=== PATIENT | female | born 1945 | race Two or more races ===

== ENCOUNTER → 2016-11-13 | Outpatient (CLI) | payer MEDICARE, MEDICAID ==
[~2016-11-13] MED LIST: ADV25050 INHALATION; AMOX1TAB10 PO; APIX2.5T PO; ATEN100T PO; BACTDS PO; ESOM40CA PO; FENO135C4 PO; IPRA4AER INHALATION; LEVO750T8 PO; LISI-313 PO; LOSA25TA5 PO; METO10TA92 PO; MTF1000T PO; NICO-524 TRANSDERM; PIOG45TA15 PO; PRAV40TA76 PO; PRED20 PO
--- NOTE | 2016-11-13 15:49 | RADRPT ---
PROCEDURE: Left knee radiographs. CLINICAL INDICATION: Left knee pain. TECHNIQUE: Three views. Weight bearing. Frontal, lateral, and patellar view. COMPARISON: No prior studies are available for comparison. FINDINGS: There is no fracture or dislocation. Vascular calcifications are present consistent with atherosclerosis. There are degenerative changes with osteophytes arising from all 3 joint compartment margins. There is medial joint compartment narrowing, subarticular sclerosis, and deformity. There is no lytic or blastic lesion. There is no radiopaque foreign body. IMPRESSION: 1. Severe degenerative changes of the left knee. 2. Atherosclerosis. RPTAT: QQ .Jose Daniel Hodgson MD, MD Date Time Electronically viewed and signed by .Jose Daniel Hodgson MD, MD on 11/13/2016 15:49 .R/
--- NOTE | 2016-11-13 22:34 | HKNOTE ---
DATE OF SERVICE: 11/13/2016 MAIN COMPLAINT: Pain in the left knee. HISTORY OF MAIN COMPLAINT: Patient is a 71-year-old female, who complains of pain in her left knee. The patient was referred by Dr. Al Vega. Patient previously had a left total knee replacement at the [facility]. She now has a gr eat deal of pain in her left knee. The pain in her left knee has been present for about 3 years and has become progressively more severe. She has had multiple injections of cortisone over the last 2 years. At first they helped a great deal, but the last couple of injections have not helped at all . PRESENT COMPLAINTS: The pain in the left knee is localized to the medial and posterior aspect of th e knee and is aggravated by walking, weightbearing, and stair climbing. She gets rest pain and nigh t pain. He takes Wing for the pain. She does not have any back problems. No numbness or tingling in her legs. Using a cane, she can walk about 50 feet at a time without stopping. She gets pain w ith every step. The knee does not feel unstable. Occasionally it swells. She does limp all the ti me. She does not have a . She cannot clip her toenails or tie her shoelaces. PAST ORTHOPEDIC HISTORY: PREVIOUS ORTHOPEDIC OPERATIONS: Right total knee replacement in 2013. PRIOR CORTISONE INTAKE: None. ALCOHOL INTAKE: None. OTHER JOINT PROBLEMS: None. BLOOD TESTS FOR ARTHRITIS: "Positive." WORK STATUS: Not applicable. PAST MEDICAL HISTORY: 1. Diabetes, type 2. 2. Hypertension. 3. Hypercholesterolemia. PAST SURGICAL HISTORY: Right knee replacement in 2013. ALLERGIES: NONE. MEDICATIONS: 1. Metoclopramide. 2. Pravastatin. 3. Metformin. 4. Atenolol. 5. Pioglitazone. 6. Losartan. 7. Lisinopril. 8. Wing. 9. Fenofibrate. FAMILY HISTORY: Not provided. SYSTEMS REVIEW: Prone to dizzy spells, hypertension, difficulty with breathing on occasion. Patien t's fainting spells on hot summer days. HABITS: The patient smokes 3 cigarettes a day. Alcohol intake: None. PHYSICAL EXAMINATION: GENERAL: The patient is a rather fragile looking 71-year-old female. She comes in with her Karen han, who translates for her mother, who does not speak Luxembourger. MUSCULOSKELETAL: Patient walks with a cane. She has a slow antalgic gait. Hip examination. Her l eft hip has full range of motion without pain. Right hip has a full range of motion without pain. No tenderness anywhere around either hip. Left knee examination modified as follows: Extension to 25 degrees. Flexion is to 105 degrees. Ma rked pain on reaching the limits of motion. IMAGING OF LEFT KNEE: Image of the left knee (3 views) obtained at [facility] today, shows [id number] contact with severe degenerative osteoarthritis of the medial compartmen t and patellofemoral joint. There is marked subchondral sclerosis and osteophyte formation. DIAGNOSES 1. Severe symptomatic degenerative osteoarthritis of the left knee. 2. Status post right total knee replacement. 3. Diabetes mellitus, type 2. 4. Hypertension. 5. Hypercholesterolemia. MANAGEMENT: The patient is advised that she will need to have a left knee replacement sooner or lat er. The patient's daughter indicates that they came into see me precisely because they wish to have a knee replacement operation for her mother. The operation of total knee replacement was discussed with the patient and her daughter (daughter in [place]) in a fair amount of detail for knee arthritis. The patient's daughter was referred to my website, [employer]. FINAL DIAGNOSES: 1. Severe symptomatic degenerative osteoarthritis of the left knee. 2. Status post right total knee replacement. 3. Diabetes mellitus, type 2. 4. Hypertension. 5. Hypercholesterolemia. Patient will call patient will call to schedule her left knee replacement at any time. [facility] She was given a prescription for Wing 10/325 to tide her over on her pain meanwhile. Dictated By: SUSHILA DAS/AKILA Conf#: [id number] DID#: [id number]
== END | disposition home or self-care (01) ==
LOC: HKI 15:16
DX: M25.562 Pain in left knee (principal); E11.9 Type 2 diabetes mellitus without complications; I10 Essential (primary) hypertension; E78.00 Pure hypercholesterolemia, unspecified; Z96.651 Presence of right artificial knee joint
CPT/HCPCS: 73562; G0463

== ENCOUNTER → 2016-11-20 | Outpatient (CLI) | payer MEDICARE, MEDICAID ==
--- NOTE | 2016-11-21 03:20 | HKNOTE ---
DATE OF SERVICE: 11/20/2016 Patient comes in for preoperative evaluation. She is scheduled to have a left total knee replacemen t on 11/21/2016. She has been cleared for surgery by Dr. Saleem Mckeon. She comes in with her grand daughter, who translates for her. Numerous questions were asked and answered. She has not given an y blood for autotransfusion. She understands the risks associated with using hospital blood. She i s agreeable to using hospital blood if needed. The patient's daughter has read the booklet I gave h er on knee replacement and knee replacement surgery. Dictated By: SUSHILA DAS/NTS Conf#: [id number] DID#: [id number]
== END | disposition home or self-care (01) ==
LOC: HKI 15:02
DX: Z01.818 Encounter for other preprocedural examination (principal)
CPT/HCPCS: G0463

== ENCOUNTER 2016-11-21 06:03 | Inpatient (IN) | payer MEDICARE, MEDICAID ==
--- NOTE | 2016-11-19 17:59 | HP ---
DATE OF ADMISSION: 11/21/2016 This is a patient of Dr. De Leon. Surgery date 11/21/2016. Dear Dr. De Leon: Thank you for asking me to see Mrs. Gonzales. She is a 71-year-old Grenadian speaking woman who has had years of difficulty with her right knee and now to the point that she can barely walk a half a bloc k and requires a cane for stability and is generally uncomfortable most of the time. She is to unde rgo a left total knee replacement. SOCIAL HISTORY: The patient is a cigarette smoker, half a pack per day, probably more. CURRENT MEDICATIONS: She is on multiple medications includin. Actos 45 mg daily. 2. Fenofibrate 145 mg daily. 3. Lisinopril 5 mg daily. 4. Atenolol 100 mg daily. 5. Metformin 2000 mg daily. 6. Losartan 50 mg daily. 7. Pravachol 40 mg daily. 8. Eliquis 5 mg daily. ALLERGIES: SHE HAS NO KNOWN ALLERGIES. PAST MEDICAL HISTORY: Positive for hyperlipidemia, diabetes. She checks herself twice a day and ev idently blood sugars are generally okay. She has a regular physician in the neighborhood. She has hypertension. She has a history of paroxysmal atrial fibrillation which is why she is on Eliquis. DISCUSSION: I just spoke with ____who feels that there are no issues about her having surgery a nd that she can safely stopped the Eliquis preoperatively. PAST SURGICAL HISTORY: Appendix and right knee replacement. REVIEW OF SYSTEMS: The patient speaks mostly Grenadian. She was interviewed with her granddaughter. HEENT: She has no headaches, no dizziness. There is some soreness over the left eye. No change in her vision. Not clear whether or not she has diabetic changes in her retina. Hearing is good. CARDIOPULMONARY: She denies any shortness of breath, cough, or difficulty with chest discomfort. S he has a history of hypertension without angina or coronary disease. GI, both okay. The joints are really not bothered by much except for her left knee. She still has residual difficulty with h er right knee. There is some tingling in her feet. FAMILY HISTORY: The patient was born in [place]. She is . subsequently . She has a healthy siblings and 3 grown children. There is no use of alcohol. PHYSICAL EXAMINATION: VITAL SIGNS: Blood pressure is 122/56, pulse is 60. She is afebrile, 5 foot and 0 inches tall, 19 6 pounds with a cane to ambulate. HEENT: No abnormalities seen other than dentures. NECK: Supple. No carotid bruits are appreciated. LUNGS: Clear to percussion and auscultation. HEART: Tones are regular, no murmurs. ABDOMEN: Soft, without palpable mass, organ or tenderness. EXTREMITIES: No clubbing, cyanosis, edema, although somewhat reduced peripheral pulses. There is a TKR scar on the right. The left knee is quite sore with any range of motion. NEUROLOGIC: Appears to be intact. INITIAL IMPRESSION: 1. Preoperative status for osteoarthritis of the left knee. 2. Hypertension. 3. Diabetes mellitus. 4. Hyperlipidemia. 5. Paroxysmal atrial fibrillation. DISCUSSION: At this point, the patient's medical status is okay to proceed with surgery. Her resti ng pulse oximetry is 98% on room air. The patient states that she takes oxygen at night. I am not clear why that is and I do not think that will be necessary depending on findings postoperatively. She is going to stop her metformin and her Eliquis today in advance of surgery. Thank you for letting us see her at this time. We will be glad to follow her along with you postope ratively. Dictated By: DANIELA GARCIA MD, SR/AKILA Conf#: [id number] DID#: [id number]
[~2016-11-21] VITALS: Ht 157.5 cm; Wt 81.6 kg
[2016-11-21] VITALS (27 sets, daily range): BP systolic 83–143; BP diastolic 38–68; PULSE 58–94; RESP 17–22; Ht 157.5 cm; Wt 81.6 kg
[2016-11-21] MEDS ORDERED: SOD CHLORIDE 0.9% IVPB ONE (06:30)
[2016-11-21] MEDS ORDERED: LANSOPRAZOLE 30 MG CAP PO ONE (06:30)
[2016-11-21] MEDS ORDERED: ACETAMINOPHEN 1000MG/100ML IV 100 ML IVPB ONE (06:30)
[2016-11-21] MEDS ORDERED: oxyCODONE (CR) 10 MG TAB [oxyCONTIN] PO ONE (06:30)
[2016-11-21] MEDS ORDERED: VANCOMYCIN 1 GM (PMX) 250 ML IVPB ONE (06:30)
[2016-11-21] MEDS ORDERED: DEXAMETHASONE 4 MG/ML 1 ML INJ IV ONE (06:30)
[2016-11-21] MEDS ORDERED: ONDANSETRON 4 MG INJ IV ONE (06:30)
[2016-11-21] MEDS ORDERED: TRANEXAMIC ACID IVPB ONE (06:30)
[2016-11-21] MEDS ORDERED: CELECOXIB 200 MG CAP PO ONE (06:30)
[2016-11-21] MEDS: LACTATED RINGER'S 1,000 ML IV* SCH ×3 (06:54→12:31)
[2016-11-21] MEDS ORDERED: ATROPINE 1 MG/10 ML SYRINGE IV PRN (07:00)
[2016-11-21] MEDS ORDERED: FENTAnyl 50 MCG/ML VIAL IV PRN ×2 (07:00)
[2016-11-21] MEDS ORDERED: HYDROmorphONE (0.2 MG/ML) 10ML SYG IV PRN ×3 (07:00)
[2016-11-21] MEDS ORDERED: OXYCODONE/ACETAMINOPHEN (5/325) TAB PO PRN ×2 (07:00)
[2016-11-21] MEDS ORDERED: LABETALOL HCL 20MG INJ IV PRN (07:00)
[2016-11-21] MEDS ORDERED: KNEE PAIN COCKTAIL VANCO INJ SCH ×6 (07:00)
[2016-11-21] MEDS ORDERED: morphine (1 MG/ML) 10ML SYRINGE IV PRN ×3 (07:00)
[2016-11-21] MEDS ORDERED: DIPHENHYDRAMINE 50 MG INJ IV PRN (07:00)
[2016-11-21] MEDS ORDERED: ONDANSETRON 4 MG INJ IV PRN (07:00)
[2016-11-21] MEDS ORDERED: EPHEDrine SULFATE 50 MG/5 ML SYG IV PRN (07:00)
[2016-11-21] MEDS ORDERED: MIDAZOLAM 1 MG/ML 2 ML INJ IV PRN (07:00)
[2016-11-21] MEDS ORDERED: MEPERIDINE 25 MG INJ IV PRN (07:00)
[2016-11-21] MEDS ORDERED: hydrALAzine 20 MG INJ IV PRN (07:00)
[2016-11-21] MEDS ORDERED: NEOSTIGMINE 3 MG/3 ML SYRINGE ONE (07:02)
[2016-11-21] MEDS ORDERED: GLYCOPYRROLATE 0.4 MG INJ ONE (07:02)
[2016-11-21] MEDS ORDERED: FENTAnyl 50 MCG/ML VIAL ONE (07:02)
[2016-11-21] MEDS ORDERED: ROCURONIUM 50 MG INJ ONE (07:02)
[2016-11-21] MEDS ORDERED: MIDAZOLAM 1 MG/ML 2 ML INJ ONE (07:02)
[2016-11-21] MEDS ORDERED: PROPOFOL 20 ML ONE (07:02)
[2016-11-21] MEDS ORDERED: LIDOCAINE 2% (SDV) 5 ML INJ ONE (07:02)
[2016-11-21] MEDS ORDERED: SUCCINYLCHOLINE CHLORIDE 100 MG/5 ML SYG IV ONE (07:03)
[2016-11-21] MEDS ORDERED: ONDANSETRON 4 MG INJ ONE (07:06)
[2016-11-21] MEDS ORDERED: DEXAMETHASONE 4 MG/ML 1 ML INJ ONE (07:06)
[2016-11-21] MEDS ORDERED: LIDOCAINE 2%/EPI 30 ML INJ ONE (07:07)
--- NOTE | 2016-11-21 07:07 | HPN ---
Date/Time of Note Date/Time of Note DATE: 11/21/16 TIME: 07:07 Interval H&P Admission Note Pt. seen H&P reviewed: No system changes KEVIN FLORES PA-C Nov 21, 2016 07:07
[2016-11-21] MEDS ORDERED: TOBRAMYCIN 1.2 GM POWDER ONE (07:20)
[2016-11-21] MEDS ORDERED: ROPIVACAINE 0.2% 100 ML ONE (07:20)
[2016-11-21] MEDS ORDERED: METHYLENE BLUE 10 MG/ML VIAL ONE (07:20)
[2016-11-21] MEDS ORDERED: BUPIVACAINE 0.25%/EPI (SDV) 30 ML INJ ONE (07:20)
[2016-11-21] MEDS ORDERED: POLYMYXIN B 500000 UNIT INJ ONE (07:20)
[2016-11-21] MEDS ORDERED: VANCOMYCIN 1 GM INJ ONE (07:20)
[2016-11-21] MEDS ORDERED: BACITRACIN 50000 UNITS INJ ONE (07:23)
[2016-11-21] MEDS ORDERED: TRANEXAMIC ACID IRR SCH ×2 (08:00)
[2016-11-21] MEDS ORDERED: SOD CHLORIDE 0.9% IRR SCH ×2 (08:00)
[2016-11-21] MEDS ORDERED: hydrALAzine 20 MG INJ ONE (08:24)
[2016-11-21] MEDS ORDERED: EPHEDrine SULFATE 50 MG/5 ML SYG ONE (08:25)
[2016-11-21] MEDS ORDERED: FUROSEMIDE 20 MG INJ ONE (08:53)
[2016-11-21] MEDS ORDERED: BISACODYL 10 MG SUPP PR PRN (09:00)
[2016-11-21] MEDS ORDERED: BETHANECHOL 25 MG TAB PO PRN (09:00)
[2016-11-21] MEDS ORDERED: COUMADIN NOTE XX SCH (09:00)
[2016-11-21] MEDS ORDERED: NALOXONE (0.4 MG/ML) INJ IV PRN (09:00)
[2016-11-21] MEDS ORDERED: HYDROmorphONE 0.2 MG/ML PCA IV PRN (09:00)
[2016-11-21] MEDS ORDERED: SENNA/DOCUSATE NA (8.6MG/50MG) TAB PO PRN (09:00)
[2016-11-21] MEDS ORDERED: ASPIRIN (EC) 325 MG TAB PO ONE (09:00)
[2016-11-21] MEDS ORDERED: NA PHOSPHATE/BIPHOS 133 ML ENEMA PR PRN (09:00)
[2016-11-21] MEDS ORDERED: MEPERIDINE 10 MG/ML 30 ML PCA IV PRN (09:00)
[2016-11-21] MEDS ORDERED: MAGNESIUM HYDROXIDE 30ML CUP PO PRN (09:00)
[2016-11-21] MEDS ORDERED: DIPHENHYDRAMINE 50 MG INJ IM PRN (09:00)
[2016-11-21] MEDS ORDERED: ROPIVACAINE 0.2% 100ML BAG INJ ONE (09:43)
--- NOTE | 2016-11-21 10:07 | RADRPT ---
PROCEDURE: Intraoperative imaging of the left knee with fluoroscopy. CLINICAL INDICATION: Left knee pain. Intraoperative. TECHNIQUE: 3 images of the left knee were obtained in the operating room with an image intensifier . No radiologist was in attendance. 6.5 seconds of fluoroscopy time was used. COMPARISON: No prior study is available for comparison. FINDINGS: Images demonstrate surgical instruments overlying the left knee. IMPRESSION: 1. Intraoperative imaging of the left knee. RPTAT: QQ .Jose Daniel Hodgson MD, MD Date Time Electronically viewed and signed by .Jose Daniel Hodgson MD, MD on 11/21/2016 10:06 .R/
--- NOTE | 2016-11-21 11:24 | RADRPT ---
PROCEDURE: Left knee radiograph. CLINICAL INDICATION: Left knee pain. Intraoperative. TECHNIQUE: Single lateral intraoperative image. COMPARISON: 11/13/2016. FINDINGS: There are components of a total left knee arthroplasty. Alignment is satisfactory. IMPRESSION: 1. Satisfactory intraoperative imaging of the left knee. RPTAT: QQ .Jose Daniel Hodgson MD, MD Date Time Electronically viewed and signed by .Jose Daniel Hodgson MD, MD on 11/21/2016 11:23 .R/
[2016-11-21] MEDS: ONDANSETRON 4 MG INJ IV SCH ×2 (12:00→18:15)
[2016-11-21] MEDS ORDERED: DOCUSATE SODIUM 100 MG CAP PO ONE (12:00)
[2016-11-21] MEDS ORDERED: CEFAZOLIN 1 GM/50 ML (PMX) 50 ML IVPB ONE (12:54)
--- NOTE | 2016-11-21 12:58 | PN ---
Date/Time of Note Date/Time of Note DATE: 11/21/16 TIME: 12:54 Assessment/Plan VTE Prophylaxis VTE Prophylaxis Intervention: SCD's Lines/Catheters IV Catheter Type (from Nrsg): Peripheral IV Subjective 24 Hr Interval Summary Free Text/Dictation 71 yr old sdspandish speaking woman post tkr today seen in recovery room somewhat uncomfortable, vital signs ok, still sleepy meds reviewed, on a lot of meds from pcp, i think that she could stop either the malik or arb, will wait till is feeling better am labs have been ordered, can waitg to restart eliquis per dr ledezma till ok with ortho start metformin tomorrow lungs sound clear, cardiac rhythm is regular Exam/Review of Systems Vital Signs Vitals Vital Signs Date Time Temp Pulse Resp B/P Pulse Ox O2 Delivery O2 Flow Rate FiO2 11/21/16 12:31 98.2 92 18 115/68 99 Nasal Cannula 3.0 Results Results 24 hrs Laboratory Tests Test 11/21/16 07:14 11/21/16 12:36 Bedside Glucose 119 163 Medications Medications Current Medications Lactated Ringer's 1,000 ml @ 125 mls/hr Q8H IV* Last administered on 11/21/16t 12:31; Start 11/21/16 at 06:30; Stop 11/21/16 at 14:29 Dextrose/Lactated Ringer's (D5-Lr) 1,000 ml @ 80 mls/hr [id number] IV ; Start 11/21 at 12:30 Hydromorphone HCl (Dilaudid IRRIGATOR) Q4PCA PRN IV SEVERE PAIN 8-10; Start 11/21/16 at 09:00; Stop 11/22/16 at 08:59 Meperidine HCl (Demerol IRRIGATOR) Q4PCA PRN IV SEVERE PAIN 8-10; Start 11/21/16 at 09:00; Stop 11/22/16 at 08:59 Oxycodone HCl (Roxicodone) 20 mg Q3H PRN PO PAIN LEVEL 8-10; Start 11/22/16 at 09:00 Oxycodone HCl 10 mg 10 mg Q3H PRN PO PAIN LEVEL 4-7; Start 11/22/16 at 09:00 Acetaminophen (Ofirmev 1000mg/ 100ml Iv) 100 ml @ 400 mls/hr Q8 IVPB ; Start at 14:00; Stop 11/23/16 at 06:14 Zolpidem Tartrate (Ambien) 5 mg HS PRN PO INSOMNIA; Start 11/21/16 at 09:00 Ondansetron HCl 4 mg 4 mg Q6 IV ; Start 11/21/16 at 12:00; Stop 11/22/16 at 06:01 Cefazolin Sodium (Ancef 1 Gm/50 ml (Pmx)) 50 ml @ 100 mls/hr Q8 IVPB ; Start at 14:00; Stop 11/22/16 at 06:29 Miscellaneous Information (Note) NOTE XX ; Start 11/21/16 at 09:00 Aspirin (Ecotrin) 325 mg BID PO ; Start 11/22/16 at 09:00 Celecoxib (Celebrex) 200 mg BID PO ; Start 11/22/16 at 09:00 Dexamethasone (Decadron) 4 mg DAILY@07 IV ; Start 11/22/16 at 07:00; Stop at 06:59 Pantoprazole (Protonix Tab) 40 mg DAILY@06 PO ; Start 11/23/16 at 06:00 Docusate Sodium/ Ferrous Fumarate (Sera-Sequels) 1 tab BID PO ; Start 11/22/16 at 09:00 Docusate Sodium (Colace) 200 mg BID PO ; Start 11/22/16 at 09:00; Stop 11/25/16 at 08:59 Simethicone (Mylicon) 80 mg TID PRN PO DISTENSION/GAS/BLOATING; Start 11/21/16 at 09:00 Senna/Docusate Sodium (Senokot-S) 2 tab BID PRN PO CONSTIPATION; Start 11/21/16 at 09:00 Magnesium Hydroxide (Milk Of Mag) 30 ml HS PRN PO CONSTIPATION; Start 11/21/16 at 09:00 Bisacodyl (Dulcolax Supp) 10 mg DAILY PRN MD CONSTIPATION; Start 11/21/16 at 09: 00 Sodium Biphosphate/ Sodium Phosphate (Fleet Enema) 133 ml DAILY PRN MD CONSTIPATION; Start 11/21/16 at 09:00 Diphenhydramine HCl (Benadryl) 25 mg Q4H PRN IM ITCHING OR RASH; Start 11/21/16 at 09:00 Ketorolac Tromethamine (Toradol) 30 mg DAILY@06 PRN INJ ADMINSTER BY SURGEON ONLY; Start 11/22/16 at 06:00; Stop 11/26/16 at 05:59 Bupivacaine HCl/ Epinephrine Bitart (Marcaine 0.25%/ Epi (Sdv) 30 ml) 20 ml DAILY@06 PRN INJ ADMINSTER BY SURGEON ONLY; Start 11/22/16 at 06:00; Stop at 05:59 Naloxone HCl (Narcan) 0.2 mg Q2M PRN IV DECREASED REPIRATORY RATE; Start at 09:00 Atenolol (Tenormin) 100 mg DAILY PO ; Start 11/22/16 at 09:00; Status UNV Lisinopril (Zestril) 5 mg DAILY PO ; Start 11/22/16 at 09:00; Status UNV Losartan Potassium (Cozaar) 50 mg DAILY PO ; Start 11/22/16 at 09:00; Status UNV Metformin HCl (Glucophage) 1,000 mg BID PO ; Start 11/22/16 at 09:00; Status UNV Pioglitazone HCl (Actos) 45 mg DAILY PO ; Start 11/22/16 at 09:00; Status UNV Salmeterol Xinafoate/ Fluticasone (Advair 250/50 Diskus) 1 inh BID INH ; Start 11/21/16 at 21:00; Status UNV Miscellaneous Information 1 puff QID INHALATION ; Start 11/21/16 at 13:00; Status UNV DANIELA GARCIA MD Nov 21, 2016 12:58
[2016-11-21] MEDS ORDERED: DEXTROSE 50% 50 ML SYRINGE IV PRN ×2 (13:00)
[2016-11-21] MEDS ORDERED: GLUCOSE GEL 15 GRAM TUBE PO PRN ×2 (13:00)
[2016-11-21] MEDS ORDERED: GLUCOSE GEL 15 GRAM TUBE BUCCAL PRN (13:00)
[2016-11-21] MEDS ORDERED: GLUCAGON 1 MG INJ IM PRN (13:00)
[2016-11-21] MEDS: CEFAZOLIN 1 GM/50 ML (PMX) 50 ML IVPB SCH ×2 (13:13→22:15)
--- NOTE | 2016-11-21 13:28 | RADRPT ---
PROCEDURE: XR Knee. CLINICAL INDICATION: Postoperative evaluation left knee TECHNIQUE: 2 views of the left knee are available for review. COMPARISON: None available FINDINGS: There is a recent left knee total arthroplasty in anatomic alignment without hardware complication. This is a constrained arthroplasty. There is anterior soft tissue swelling and gas as well as skin markus and anterior drain. There is no evidence of acute fracture. IMPRESSION: Recent constrained total left knee arthroplasty as above. RPTAT: UU .Saleem Ramirez MD, MD Date Time Electronically viewed and signed by .Saleem Ramirez MD, on 11/21/2016 13:28 .K/
[2016-11-21] MEDS: ACETAMINOPHEN 1000MG/100ML IV 100 ML IVPB SCH ×2 (14:32→21:31)
[2016-11-21] MEDS: DEXTROSE 5%-LR 1,000 ML IV SCH (14:32)
--- NOTE | 2016-11-21 14:32 | PDOCDIS ---
Discharge Instructions CONDITION Patient Condition: Stable HOME CARE INSTRUCTIONS: Diet Instructions: Regular ACTIVITY: Activity Restrictions: Avoid heavy lifting Do not operate Machinery Avoid Heavy Housework Keep Limb Elevated Weight Bearing (as tolerated and with Walker if needed) Bathing Restrictions: Shower (with Tegaderm over wound until markus are removed.) FOLLOW UP/APPOINTMENTS Appointments Follow up in outpatient clinic on 12/16/[address] De Leon/Kevin Hodgson PA-C OTHER ORDERS: Other Orders: -Pain Meds as needed. Rx was given at Preoperative visit. -Dr. De Leon has confirmed with patient's PCP Dr. Vega that patient will take ASA 325 BID x 1 week and switch back to her normal Eliquis dose x 5 weeks for DVT Prophylaxis outpatient. -Tegaderm dressings given with specific instructions to use as outpatient to keep wound dry until markus are moved in around 10 days. KEVIN HODGSON PA-C Nov 21, 2016 14:32
--- NOTE | 2016-11-21 14:56 | CONS ---
Date/Time of Note Date/Time of Note DATE: 11/21/16 TIME: 14:51 Assessment/Plan Assessment/Plan Additional Assessment/Plan Postoperative cardiac evaluation Atrial fibrillation, currently sinus Arthritis status post knee surgery Hypertension Diabetes -Patient currently in sinus rhythm. Would continue to hold anticoagulation until okay to restart as per our orthopedic colleagues. Blood pressure currently well controlled, patient currently on beta gerardo for rate control. Otherwise, no adjustments to patient's cardiac medication regimen at the current time. Consultation Date/Type/Reason Admit Date/Time Nov 21, 2016 at 06:03 Type of Consultation: cv Reason for Consultation Postoperative cardiac evaluation Hx of Present Illness This is a 71-year-old female with history of paroxysmal atrial fibrillation on anticoagulation, hypertension, dyslipidemia who presented for elective orthopedic knee surgery. Patient has done well postoperatively and is being seen in recovery. She is sleepy but arousable. She denies any chest pain, shortness of breath or palpitations. Unable to be performed at the current time given patient sleepy after surgery Past Medical History Atrial fibrillation Medical History: diabetes, high cholesterol, hypertension Past Surgical History Appendectomy Right knee surgery Family History Significant Family History: no pertinent family hx Social History Smoking Status: Current every day smoker Exam/Review of Systems Vital Signs Vitals Vital Signs Date Time Temp Pulse Resp B/P Pulse Ox O2 Delivery O2 Flow Rate FiO2 11/21/16 14:25 Nasal Cannula 2.0 11/21/16 14:23 98.6 86 17 118/54 96 Exam Sleeping but arousable, no apparent disease Constitutional: obese Head: normocephalic Neck: supple Respiratory: other (course breath sounds bilaterally, no wheezing) Cardiovascular: other (S1 and S2 heard), regular rate and rhythm Gastrointestinal: bowel sounds, non-tender, other (no guarding), soft Extremities: other (no edema, left leg is wrapped) Results Results 24 hrs Laboratory Tests Test 11/21/16 07:14 11/21/16 12:36 Bedside Glucose 119 163 Medications Medications Current Medications Dextrose/Lactated Ringer's (D5-Lr) 1,000 ml @ 80 mls/hr [id number] IV Last administered on 11/21/16t 14:32; Admin Dose 80 MLS/HR; Start 11/21/16 at 12:30 Hydromorphone HCl (Dilaudid LEVEL VIAL INSPECTOR) Q4PCA PRN IV SEVERE PAIN 8-10; Start 2/3/17 at 09:00; Stop 11/22/16 at 08:59 Meperidine HCl (Demerol LEVEL VIAL INSPECTOR) Q4PCA PRN IV SEVERE PAIN 8-10; Start 11/21/16 at 09:00; Stop 11/22/16 at 08:59 Oxycodone HCl (Roxicodone) 20 mg Q3H PRN PO PAIN LEVEL 8-10; Start 11/22/16 at 09:00 Oxycodone HCl 10 mg 10 mg Q3H PRN PO PAIN LEVEL 4-7; Start 11/22/16 at 09:00 Acetaminophen (Ofirmev 1000mg/ 100ml Iv) 100 ml @ 400 mls/hr Q8 IVPB Last administered on 11/21/16 14:32; Admin Dose 400 MLS/HR; Start 11/21/16 at 14:00; Stop 11/23/16 at 06:14 Zolpidem Tartrate (Ambien) 5 mg HS PRN PO INSOMNIA; Start 11/21/16 at 09:00 Ondansetron HCl 4 mg 4 mg Q6 IV ; Start 11/21/16 at 12:00; Stop 11/22/16 at 06:01 Cefazolin Sodium (Ancef 1 Gm/50 ml (Pmx)) 50 ml @ 100 mls/hr Q8 IVPB Last administered on 11/21/16 13:13; Admin Dose 100 MLS/HR; Start 11/21/16 at 14:00; Stop 11/22/16 at 06:29 Miscellaneous Information (Note) NOTE XX ; Start 11/21/16 at 09:00 Aspirin (Ecotrin) 325 mg BID PO ; Start 11/22/16 at 09:00 Celecoxib (Celebrex) 200 mg BID PO ; Start 11/22/16 at 09:00 Dexamethasone (Decadron) 4 mg DAILY@07 IV ; Start 11/22/16 at 07:00; Stop at 06:59 Pantoprazole (Protonix Tab) 40 mg DAILY@06 PO ; Start 11/23/16 at 06:00 Docusate Sodium/ Ferrous Fumarate (Sera-Sequels) 1 tab BID PO ; Start 11/22/16 at 09:00 Docusate Sodium (Colace) 200 mg BID PO ; Start 11/22/16 at 09:00; Stop 11/25/16 at 08:59 Simethicone (Mylicon) 80 mg TID PRN PO DISTENSION/GAS/BLOATING; Start 11/21/16 at 09:00 Senna/Docusate Sodium (Senokot-S) 2 tab BID PRN PO CONSTIPATION; Start 11/21/16 at 09:00 Magnesium Hydroxide (Milk Of Mag) 30 ml HS PRN PO CONSTIPATION; Start 11/21/16 at 09:00 Bisacodyl (Dulcolax Supp) 10 mg DAILY PRN [place] CONSTIPATION; Start 11/21/16 at 09: 00 Sodium Biphosphate/ Sodium Phosphate (Fleet Enema) 133 ml DAILY PRN [place] CONSTIPATION; Start 11/21/16 at 09:00 Diphenhydramine HCl (Benadryl) 25 mg Q4H PRN IM ITCHING OR RASH; Start 11/21/16 at 09:00 Ketorolac Tromethamine (Toradol) 30 mg DAILY@06 PRN INJ ADMINSTER BY SURGEON ONLY; Start 11/22/16 at 06:00; Stop 11/26/16 at 05:59 Bupivacaine HCl/ Epinephrine Bitart (Marcaine 0.25%/ Epi (Sdv) 30 ml) 20 ml DAILY@06 PRN INJ ADMINSTER BY SURGEON ONLY; Start 11/22/16 at 06:00; Stop at 05:59 Naloxone HCl (Narcan) 0.2 mg Q2M PRN IV DECREASED REPIRATORY RATE; Start at 09:00 Atenolol (Tenormin) 100 mg DAILY PO ; Start 11/22/16 at 09:00 Lisinopril (Zestril) 5 mg DAILY PO ; Start 11/22/16 at 09:00 Losartan Potassium (Cozaar) 50 mg DAILY PO ; Start 11/22/16 at 09:00 Pioglitazone HCl (Actos) 45 mg DAILY PO ; Start 11/22/16 at 09:00 Salmeterol Xinafoate/ Fluticasone (Advair 250/50 Diskus) 1 inh BID INH ; Start 11/21/16 at 21:00 Miscellaneous Information 1 ea NOTE XX ; Start 11/21/16 at 13:00 Glucose (Glutose) 15 gm Q15M PRN PO DECREASED GLUCOSE; Start 11/21/16 at 13:00 Glucose (Glutose) 22.5 gm Q15M PRN PO DECREASED GLUCOSE; Start 11/21/16 at 13:00 Dextrose (D50w Syringe) 25 ml Q15M PRN IV DECREASED GLUCOSE; Start 11/21/16 at 13:00 Dextrose (D50w Syringe) 50 ml Q15M PRN IV DECREASED GLUCOSE; Start 11/21/16 at 13:00 Glucagon (Glucagen) 1 mg Q15M PRN IM DECREASED GLUCOSE; Start 11/21/16 at 13:00 Glucose (Glutose) 15 gm Q15M PRN BUCCAL DECREASED GLUCOSE; Start 11/21/16 at 13: 00 Procedures Procedures Telemetry reviewed and patient currently in sinus rhythm ECG from November 19 sinus rhythm. Normal QRS duration, no significant STT wave abnormalities Dave Vogt DO Nov 21, 2016 14:56
[2016-11-21] MEDS: CEPASTAT LOZENGE MT PRN (15:23)
[2016-11-21] MEDS: oxyCODONE 5 MG TAB PO PRN ×2 (15:23→21:30)
[2016-11-21] MEDS: TRANEXAMIC ACID 820 MG in SOD CHLORIDE 0.9% 100 ML IVPB SCH ×2 (15:24→18:44)
[2016-11-21] MEDS ORDERED: oxyCODONE 5 MG TAB PO PRN (15:30)
--- NOTE | 2016-11-21 15:34 | OPR ---
DATE OF OPERATION: 11/21/2016 SURGEON: Miguelito De Leon MD STOCKING INSPECTOR: ANESTHESIOLOGIST: Dr. Gaona PREOPERATIVE DIAGNOSIS: Exceedingly severe degenerative osteoarthritis of the left knee. POSTOPERATIVE DIAGNOSIS: Exceedingly severe degenerative osteoarthritis of the left knee. OPERATION PERFORMED: Total knee replacement (arthroplasty of the knee, condylar plateau medial and lateral compartments with patella resurfacing, CPT 29333). FINDINGS AT SURGERY: The patient was found to have exceedingly severe degenerative osteoarthritis a ffecting all 3 compartments of the knee. Her bone quality was remarkably good for a female of her a ge. JUSTIFICATION FOR SURGERY: The knee was found to have end-stage osteoarthritis. The patient is a v rosalva inactive 71-year-old female whose lifestyle has been markedly affected by the arthritic knee. A n extensive course of conservative care has been tried prior to embarking on the knee replacement op eration. There can be no reasonable expectation that any further conservative treatment will make a ny improvement to this patient's pain level and lifestyle. The risks and complications of the surge ry were discussed with the patient at the preoperative visit as well as the risks and possible compl ications of blood transfusion using hospital blood. The patient is agreeable to using hospital bloo d if needed. DESCRIPTION OF PROCEDURE: The patient was given intravenous antibiotics 1 hour prior to surgery. A n epidural anesthetic was initiated in the ICU holding area. The patient was taken to the operating room and given a light general anesthetic. The leg, foot, and ankle were prepared and draped in th e usual sterile fashion. The center of the ankle was marked at the midpoint between the 2 malleoli with a sterile marking pen. A tourniquet around the thigh was inflated to 225 mmHg after the leg lawson d been exsanguinated using an Esmarch bandage. The tourniquet was inflated at the initiation of pro cedure for a short period and was then again reinflated at the time of cementing the components part s. The total tourniquet time was ____ minutes. A longitudinal incision was made over the anterior aspect of the knee. The incision extended from t he tibial tubercle to a point just above the patella. The medial capsule was exposed by sharp and b lolis dissection, and was incised 1/4 inch medial to the patella. A marking stitch was set on each s ken of the incision at the midpoint of the capsule so as to enable accurate reapproximation at the e nd of the operation. A vastus split was made in the vastus medialis extending from the superior dayna e of the patella for approximately 5 cm between the line with the muscle fibers. The ends of the mu scle split at the patella were marked with a marking stitch on each side for later accurate reapprox imation. The patella was reflected laterally and osteophytes around the rim of the patella were rem garland. Osteophytes along the lateral femoral condyle were removed so as to facilitate lateral reflec tion of the patella. Posteromedial osteophytes were removed on the lateral side as well, so as to f ree up the lateral collateral ligament. Medial femoral osteophytes and posteromedial femoral osteop hytes were also removed at this time. This allowed for the knee to be brought into a more normal al ignment. A segment of bone was cut from the articular surface of the patella using a caliper to det ermine the exact thickness to be removed. The remaining thickness of the patella was 15 mm. The kn ee was flexed, and the patella was displaced laterally without eversion. Osteophytes in the femoral notch were removed. The remnants of the medial and lateral menisci were excised and the cruciate l igaments were excised. The medial collateral ligament was elevated as an osteo-periosteal flap from the proximal tibia. The distal end of the medial collateral ligament remained attached to the tibi a throughout the operation. The tibia was retracted forward with Hohmann retractor, inserted turn sewer ior to the midpoint of the proximal tibia. The tibial jig was set in place in such a way as to alig n longitudinally with the anterior tibial spine, with the junction of the middle and medial 2/3 of t he patella tendon, and with the posterior intercondylar eminence of the tibia. An AP and lateral x- ray was obtained with the alignment jig in place. This showed that the alignment was satisfactory a fter some slight adjustments were made. The posterior slope of the tibia was set at 6 degrees. The tibial cutting block was attached to the proximal tibia with 2 Steinmann pins. An external alignme nt cindi was placed on the cutting block to confirm the alignment of the cutting block. An Steven Wing feeler gauge was now placed on the superior aspect of the cutting block to further confirm the post erior slope of the tibia and the depth of the cut to be made. An oscillating saw was used to remove an appropriate amount of bone from the proximal tibia with the healthy side being used to measure t he cutting depth. The lateral femoral condyle of the distal femur was measured to determine the maria antonia ropriate size for the femoral component. The anterior condyle of the femur was partially removed wi th a rongeur. A medium-sized cutting block was attached to the distal femur with 2 Steinmann pins t hrough the pin holes in the block. The external alignment jig of this cutting block was lined up wi th the anterior surface of the femur and a central intercondylar hole for the intramedullary cindi was drilled through the hole in the alignment block. The block was removed. A long Waterpik nozzle wa s used to flush fat from the intramedullary canal. The appropriately sized cutting block was now at tached to the femur by means of an intramedullary cindi. The linking guide was inserted into the slot in the base of the femoral cutting block with the knee set at 90 degrees of flexion and with the li nking guide set flush with the proximal tibial cut in order to set the appropriate rotational alignm ent on the femoral cutting block. Ligament balance was checked at this point and was found to be ve ry satisfactory. Once the rotational alignment had been determined, and the ligaments found to be b alanced, the femoral cutting block was secured to the distal femur with 2 Steinmann pins. The anter ior and posterior cuts of the distal femur were made off the femoral cutting block. The cutting blo ck was removed and a spacer block was used to measure the flexion gap which was found to be 15 mm. The same spacer block size without the femoral element was used with the leg in extension to determi ne the amount of distal femur to be removed in the transverse plane. A 5-degree distal cutting bloc k was now set on the femoral intramedullary cindi, and the cindi was inserted into the intramedullary ca nal. The appropriate amount of bone to be removed was determined. The femoral cutting block was pi nned to the anterior surface of the femur with 2 Steinmann pins. The appropriate amount of bone was resected off the distal femur to give an extension gap equal to the thickness of the flexion gap. The cut needed to be repeated after initial cut in order to produce an extension gap the same size a s the flexion gap. By using the appropriate cutting blocks, the rest of the femoral cuts were made. The femoral trial component was installed and was found to fit perfectly. The femoral trial component was removed. T he proximal tibia was sized, and the appropriate tibial tray selected. The central fixation hole in the tibia was made using the tibial tray template and the appropriate instruments. The femoral and tibial trials and the trial tibial insert were installed, and the patella was prepared to accept th e 32 mm patellar dome component. The trial components were all removed. The tourniquet was inflate d. Soft tissues around the knee, especially the posterior capsule, were injected with a mixture of Naropin, Toradol, morphine, and clonidine. The cut surfaces of the bones were cleaned with pulsatil e Water Jet lavage and thoroughly dried. Sclerotic bone surfaces were drilled with a 1/8-inch drill . The tibial trial component was installed with methyl methacrylate cement followed by the femoral component and finally the patellar component. Cement was used on all 3 components. The cement was finger packed into the cut surfaces of the bone and pressurized with a rubber dam in order to get go od interdigitation of the cement into the bone. A lateral x-ray of the knee was obtained while the cement was hardening with a 12.[address]. The x-ray showed that the knee was in hyperext ension, and therefore, once the cement was hard, the 15 mm insert was tried and was found to fit sat isfactorily with good tracking and good ligament balance. Once the cement was hard, all extraneous cement was removed. The cut edges of the medial capsule were held together at the midpoint with a t owel clip, and the knee was put through a full range of motion. The patella was found to track sati sfactorily. A lateral release was not required. At this point, the patella was found to track very well in the patellar groove of the femoral component. The knee was frequently irrigated with normal saline containing antibiotics with pulsatile lavage th roughout the entire operation as a prophylactic measure against infection. Once the cement was hard , the tourniquet was released. Bleeding points were cauterized. The total tourniquet time was ____ . The patient's vital signs remained stable throughout the operation. The permanent rotating bearing was installed. Superficial and deep Hemovac drains were set in place . The wound was closed using interrupted Vicryl on the capsule with FiberWire used at strategic poi nts such as the attachment of the distal ends of the vastus medialis at the split, and the tibial te ndon was also attached to the osteo-periosteal flap with FiberWire. The rest of the medial capsule was closed with interrupted Vicryl. A subcuticular stitch was inserted and markus were used on the skin. The usual sterile dressings were applied. A Geovanny-Dawson compression dressing was applied a fter a sterile cooling pad had been set in place against the deep tissues by sterile cast padding. The patient's condition at the end of the procedure was satisfactory. Vital signs remained stable t hroughout the operation. The patient returned to the recovery room in stable condition. X-rays wer e obtained in the recovery room. Calf pumps were applied to both legs in the operating room. There were no problems or complications as far as we know. The sponge and instrument counts were correct . COMPONENT INFORMATION: KNEE IMPLANT TYPE: LCS. FEMORAL COMPONENT SIZE: Standard. TIBIAL COMPONENT SIZE: 2.5 PATELLAR COMPONENT SIZE: 32 dome TIBIAL INSERT: 15 mm IMPLANT COMPANY DRIVER: [employer] [place], [place]. Dictated By: MIGUELITO DAS/AKILA Conf#: [id number] DID#: [id number]
[2016-11-21] MEDS: ALBUTEROL/IPRATROPIUM (NEB) 3 ML AMP INH SCH ×2 (17:22→21:40)
[2016-11-21] MEDS: ASPIRIN (EC) 325 MG TAB PO SCH (18:44)
[2016-11-21] MEDS: SALMETEROL/FLUTICASONE 250/50 INHA INH SCH (21:30)
[2016-11-21] MEDS: ZOLPIDEM 5 MG TAB PO PRN (22:15)
[2016-11-22] MEDS ORDERED: BUPIVACAINE 0.25%/EPI (SDV) 30 ML INJ INJ PRN (06:00)
[2016-11-22] MEDS ORDERED: KETOROLAC 30 MG INJ INJ PRN (06:00)
[2016-11-22 06:34] LABS: HEMATOCRIT 30.3 % (37.0-47.0); HEMOGLOBIN 10.3 g/dl (12.0-16.0); MEAN CORPUSCULAR HEMOGLOBIN 33.6 pg (29.0-33.0); MEAN CORPUSCULAR VOLUME 98.7 fl (82.0-101.0); RED BLOOD COUNT 3.07 10^6/ul (4.20-5.40); RED CELL DISTRIBUTION WIDTH 13.7 % (11.5-14.5); WHITE BLOOD COUNT 11.5 10^3/ul (4.8-10.8)
[2016-11-22 06:35] LABS: BASOPHILS % 0.1 % (0.0-2.0); LYMPHOCYTES # 1.6 10^3/ul (0.8-2.9); LYMPHOCYTES % 14.1 % (15.0-51.0); MEAN PLATELET VOLUME 10.1 fl (7.4-10.4); MONOCYTE # 0.7 10^3/ul (0.3-0.9); MONOCYTES % 5.7 % (0.0-11.0); NEUTROPHIL # 9.2 10^3/ul (1.6-7.5); NEUTROPHILS % 79.7 % (39.0-77.0); PLATELET COUNT 278 10^3/UL (140-440)
[2016-11-22] MEDS: DEXTROSE 5%-LR 1,000 ML IV SCH ×2 (06:55→12:31)
[2016-11-22] MEDS: CEFAZOLIN 1 GM/50 ML (PMX) 50 ML IVPB SCH (06:55)
[2016-11-22] MEDS: DEXAMETHASONE 4 MG/ML 1 ML INJ IV SCH (06:56)
[2016-11-22] MEDS: oxyCODONE 5 MG TAB PO PRN ×2 (06:56→11:38)
[2016-11-22] MEDS: ACETAMINOPHEN 1000MG/100ML IV 100 ML IVPB SCH ×3 (06:56→21:30)
[2016-11-22] MEDS: ONDANSETRON 4 MG INJ IV SCH ×2 (06:57)
[2016-11-22 07:00] VITALS: BP 111/56; RESP 20
[2016-11-22] MEDS ORDERED: NON-FORMULARY/PATIENT OWN MED (Esomeprazole Mag Trihydrate (Nexium) 40 MG) PO SCH (07:00)
[2016-11-22] MEDS: CELECOXIB 200 MG CAP PO SCH ×2 (08:51→21:04)
[2016-11-22] MEDS: ASPIRIN (EC) 325 MG TAB PO SCH ×3 (08:52→21:04)
[2016-11-22] MEDS: SALMETEROL/FLUTICASONE 250/50 INHA INH SCH ×2 (08:53→21:04)
[2016-11-22] MEDS: FERROUS FUMARATE (SR) TAB PO SCH ×2 (08:53→21:04)
[2016-11-22] MEDS: DOCUSATE SODIUM 100 MG CAP PO SCH ×2 (08:53→21:04)
[2016-11-22] MEDS: ATENOLOL 100 MG TAB PO SCH (08:54)
[2016-11-22] MEDS: LISINOPRIL 5 MG TAB PO SCH (08:54)
[2016-11-22] MEDS: LOSARTAN 50 MG TAB PO SCH (08:55)
[2016-11-22] MEDS: PIOGLITAZONE 45 MG TAB PO SCH (09:00)
[2016-11-22] MEDS: ALBUTEROL/IPRATROPIUM (NEB) 3 ML AMP INH SCH ×4 (09:14→20:35)
--- NOTE | 2016-11-22 11:53 | PN ---
Date/Time of Note Date/Time of Note DATE: 11/22/16 TIME: 11:51 Assessment/Plan Lines/Catheters IV Catheter Type (from Nrsg): Peripheral IV Hernandez in Place (from Nrsg): Yes Assessment/Plan Assessment/Plan POD # 1. Stable. -Drains d/c'd -Pain cocktail administered -OOB with PT -Pain meds -ASA/SCDs Subjective 24 Hr Interval Summary Comfortable. Minimal pain. Exam/Review of Systems Vital Signs Vitals Vital Signs Date Time Temp Pulse Resp B/P Pulse Ox O2 Delivery O2 Flow Rate FiO2 11/22/16 09:15 76 20 95 Nasal Cannula 2.0 11/22/16 07:00 97.7 111/56 Intake and Output 11/21/16 11/21/16 11/22/16 15:00 23:00 07:00 Intake Total 1800 ml 916 ml 400 ml Output Total 350 ml 450 ml 1200 ml Balance 1450 ml 466 ml -800 ml Exam Free Text/Dictation Hemovac: 100 cc Dressing dry Incision clean, dry, and intact without redness or drainage 5/5 Tibialis Anterior, EHL, Gastroc Soleus, Peroneals Normal sensation Palpable DP/PT, CR < 2 Sec No distal edema Results Result Diagram: 11/22/16 0447 SALUD WARE MD Nov 22, 2016 11:53
[2016-11-22] MEDS: metFORMIN 500 MG TAB PO SCH (17:53)
[2016-11-22 20:00] VITALS: BP 136/60; RESP 18
[2016-11-22] MEDS: ZOLPIDEM 5 MG TAB PO PRN (21:04)
[2016-11-23] MEDS: oxyCODONE 5 MG TAB PO PRN ×2 (01:32→09:01)
[2016-11-23] MEDS: DEXTROSE 5%-LR 1,000 ML IV SCH (02:00)
[2016-11-23] MEDS: CEPASTAT LOZENGE MT PRN (05:03)
[2016-11-23] MEDS: ACETAMINOPHEN 1000MG/100ML IV 100 ML IVPB SCH (05:36)
[2016-11-23] MEDS: DEXAMETHASONE 4 MG/ML 1 ML INJ IV SCH (05:36)
[2016-11-23] MEDS ORDERED: PANTOPRAZOLE (EC) 40 MG TAB PO SCH (06:00)
[2016-11-23 06:04] LABS: BASOPHILS % 0.3 % (0.0-2.0); EOSINOPHILS # 0.1 10^3/ul (0.0-0.5); EOSINOPHILS % 1.1 % (0.0-7.0); HEMATOCRIT 30.3 % (37.0-47.0); HEMOGLOBIN 10.5 g/dl (12.0-16.0); LYMPHOCYTES % 19.9 % (15.0-51.0); MEAN CORPUSCULAR HEMOGLOBIN 33.8 pg (29.0-33.0); MEAN CORPUSCULAR HGB CONC 34.5 g/dl (32.0-37.0); MEAN PLATELET VOLUME 8.7 fl (7.4-10.4); MONOCYTE # 0.5 10^3/ul (0.3-0.9); MONOCYTES % 4.6 % (0.0-11.0); NEUTROPHIL # 7.4 10^3/ul (1.6-7.5); NEUTROPHILS % 74.1 % (39.0-77.0); PLATELET COUNT 259 10^3/UL (140-440); RED CELL DISTRIBUTION WIDTH 13.9 % (11.5-14.5)
[2016-11-23 06:25] LABS: CONDITION 1
[2016-11-23] MEDS: ALBUTEROL/IPRATROPIUM (NEB) 3 ML AMP INH SCH ×2 (07:48→11:57)
[2016-11-23 08:15] VITALS: BP 138/62; PULSE 64; RESP 16
[2016-11-23] MEDS: PIOGLITAZONE 45 MG TAB PO SCH (08:55)
[2016-11-23] MEDS: metFORMIN 500 MG TAB PO SCH (08:55)
[2016-11-23] MEDS: FERROUS FUMARATE (SR) TAB PO SCH (08:56)
[2016-11-23] MEDS: DOCUSATE SODIUM 100 MG CAP PO SCH (08:56)
[2016-11-23] MEDS: CELECOXIB 200 MG CAP PO SCH (08:56)
[2016-11-23] MEDS: LISINOPRIL 5 MG TAB PO SCH (08:57)
[2016-11-23] MEDS: ASPIRIN (EC) 325 MG TAB PO SCH ×2 (08:57→08:58)
[2016-11-23] MEDS: LOSARTAN 50 MG TAB PO SCH (08:57)
--- NOTE | 2016-11-23 08:57 | PN ---
Date/Time of Note Date/Time of Note DATE: 11/23/16 TIME: 08:55 Assessment/Plan Lines/Catheters IV Catheter Type (from Nrsg): Saline Lock Hernandez in Place (from Nrsg): Yes Assessment/Plan Assessment/Plan POD # 2. Stable. -Pain cocktail administered -D/C to home -Pain meds -Home PT -ASA 325 mg po bid -F/u with Dr. De Leon in 1 week Subjective 24 Hr Interval Summary Comfortable. Wants to go home today. Exam/Review of Systems Vital Signs Vitals Vital Signs Date Time Temp Pulse Resp B/P Pulse Ox O2 Delivery O2 Flow Rate FiO2 11/23/16 08:15 98.2 64 16 138/62 100 Nasal Cannula 1.0 Intake and Output 11/22/16 11/22/16 11/23/16 15:00 23:00 07:00 Intake Total 810 ml 840 ml 500 ml Output Total 100 ml 1000 ml Balance 710 ml -160 ml 500 ml Exam Free Text/Dictation Dressing dry Incision clean, dry, and intact without redness or drainage. Minimal bruising. 02/20 Tibialis Anterior, EHL, Gastroc Soleus, Peroneals Normal sensation Palpable DP/PT, CR < 2 Sec No distal edema Results Result Diagram: 11/23/16 0452 SALUD WARE MD Nov 23, 2016 08:57
[2016-11-23] MEDS: SALMETEROL/FLUTICASONE 250/50 INHA INH SCH (08:58)
[2016-11-23] MEDS: ATENOLOL 100 MG TAB PO SCH (08:58)
--- NOTE | 2016-11-23 09:26 | PN ---
Date/Time of Note Date/Time of Note DATE: 11/23/16 TIME: 09:23 Assessment/Plan VTE Prophylaxis VTE Prophylaxis Intervention: other Lines/Catheters IV Catheter Type [facility]from [facility] Saline Lock Urinary Cath still in place: Yes Reason Cath still needed: urinary retention (DC in morning) Assessment/Plan Chief Complaint/Hosp Course Late entry for November 22, 2016 Problems: (1) Aftercare following left knee joint replacement surgery Status: Acute Comment: She has done well post knee replacement surgery. She should continue on care and can be discharged home. She can resume her routine anticoagulant therapy approximately 2-3 weeks post discharge. (2) Paroxysmal atrial fibrillation Status: Chronic Comment: She has been in sinus rhythm while in the hospital (3) Obesity (BMI 30.0-34.9) Status: Chronic Comment: Counseled (4) Hyperlipidemia associated with type 2 diabetes mellitus Status: Chronic Comment: On statin therapy (5) Essential hypertension Status: Chronic Comment: Well-controlled with combination of H2 receptor gerardo drug and beta- gerardo (6) Diabetes mellitus type 2 in obese Status: Chronic Comment: Adequately controlled Subjective 24 Hr Interval Summary Free Text/Dictation Late entry for November 22, 2016 Constitutional: no complaints (Denies fever chills or sweats) Respiratory: no complaints Cardiovascular: no complaints (Specifically no palpitations) Gastrointestinal: no complaints Exam/Review of Systems Vital Signs Vitals Vital Signs Date Time Temp Pulse Resp B/P Pulse Ox O2 Delivery O2 Flow Rate FiO2 11/23/16 08:15 98.2 64 16 138/62 100 Nasal Cannula 1.0 Intake and Output 11/22/16 11/22/16 11/23/16 15:00 23:00 07:00 Intake Total 810 ml 840 ml 500 ml Output Total 100 ml 1000 ml Balance 710 ml -160 ml 500 ml Exam Constitutional: alert, oriented Respiratory: clear to auscultation, normal air movement Cardiovascular: nl pulses, regular rate and rhythm Results Result Diagram: 11/23/16 0452 Results 24 hrs Laboratory Tests Test 11/23/16 04:52 Basophils # 0.0 Basophils % 0.3 Eosinophils # 0.1 Eosinophils % 1.1 Hematocrit 30.3 L Hemoglobin 10.5 L Lymphocytes # 2.0 Lymphocytes % 19.9 Mean Corpuscular Hemoglobin 33.8 H Mean Corpuscular Hemoglobin Concent 34.5 Mean Corpuscular Volume 98.0 Mean Platelet Volume 8.7 Monocytes # 0.5 Monocytes % 4.6 Neutrophils # 7.4 Neutrophils % 74.1 Nucleated Red Blood Cells # 0.0 Nucleated Red Blood Cells % 0.0 Platelet Count 259 Red Blood Count 3.10 L Red Cell Distribution Width 13.9 White Blood Count 10.0 Medications Medications Current Medications Dextrose/Lactated Ringer's (D5-Lr) 1,000 ml @ 80 mls/hr [id number] IV Last administered on 11/22/16 06:55; Admin Dose 80 MLS/HR; Start 11/21/16 at 12:30 Oxycodone HCl (Roxicodone) 20 mg Q3H PRN PO PAIN LEVEL 8-10; Start 11/21/16 at 15:30 Oxycodone HCl (Roxicodone) 10 mg Q3H PRN PO PAIN LEVEL 4-7 Last administered on 11/23/16 09:01; Admin Dose 10 MG; Start 11/21/16 at 15:30 Zolpidem Tartrate (Ambien) 5 mg HS PRN PO INSOMNIA Last administered on 21:04; Admin Dose 5 MG; Start 11/21/16 at 09:00 Miscellaneous Information (Note) NOTE XX ; Start 11/21/16 at 09:00 Aspirin (Ecotrin) 325 mg BID PO Last administered on 11/23/16 08:57; Admin Dose 325 MG; Start 11/22/16 at 09:00 Celecoxib (Celebrex) 200 mg BID PO Last administered on 11/23/16 08:56; Admin Dose 200 MG; Start 11/22/16 at 09:00 Dexamethasone (Decadron) 4 mg DAILY@07 IV Last administered on 11/23/16 05:36; Admin Dose 4 MG; Start 11/22/16 at 07:00; Stop 11/25/16 at 06:59 Pantoprazole (Protonix Tab) 40 mg DAILY@06 PO Last administered on 11/23/16 05: 36; Admin Dose 40 MG; Start 11/23/16 at 06:00 Docusate Sodium/ Ferrous Fumarate (Sera-Sequels) 1 tab BID PO Last administered on 11/23/16 08:56; Admin Dose 1 TAB; Start 11/22/16 at 09:00 Docusate Sodium (Colace) 200 mg BID PO Last administered on 11/23/16 08:56; Admin Dose 200 MG; Start 11/22/16 at 09:00; Stop 11/25/16 at 08:59 Simethicone (Mylicon) 80 mg TID PRN PO DISTENSION/GAS/BLOATING; Start 11/21/16 at 09:00 Senna/Docusate Sodium (Senokot-S) 2 tab BID PRN PO CONSTIPATION; Start 11/21/16 at 09:00 Magnesium Hydroxide (Milk Of Mag) 30 ml HS PRN PO CONSTIPATION; Start 11/21/16 at 09:00 Bisacodyl (Dulcolax Supp) 10 mg DAILY PRN OR CONSTIPATION; Start 11/21/16 at 09: 00 Sodium Biphosphate/ Sodium Phosphate (Fleet Enema) 133 ml DAILY PRN OR CONSTIPATION; Start 11/21/16 at 09:00 Diphenhydramine HCl (Benadryl) 25 mg Q4H PRN IM ITCHING OR RASH; Start 11/21/16 at 09:00 Ketorolac Tromethamine (Toradol) 30 mg DAILY@06 PRN INJ ADMINSTER BY SURGEON ONLY; Start 11/22/16 at 06:00; Stop 11/26/16 at 05:59 Bupivacaine HCl/ Epinephrine Bitart (Marcaine 0.25%/ Epi (Sdv) 30 ml) 20 ml DAILY@06 PRN INJ ADMINSTER BY SURGEON ONLY; Start 11/22/16 at 06:00; Stop at 05:59 Naloxone HCl (Narcan) 0.2 mg Q2M PRN IV DECREASED REPIRATORY RATE; Start at 09:00 Atenolol (Tenormin) 100 mg DAILY PO Last administered on 11/23/16 08:58; Admin Dose 100 MG; Start 11/22/16 at 09:00 Lisinopril (Zestril) 5 mg DAILY PO Last administered on 11/23/16 08:57; Admin Dose 5 MG; Start 11/22/16 at 09:00 Losartan Potassium (Cozaar) 50 mg DAILY PO Last administered on 11/23/16 08:57 ; Admin Dose 50 MG; Start 11/22/16 at 09:00 Pioglitazone HCl (Actos) 45 mg DAILY PO Last administered on 11/23/16 08:55; Admin Dose 45 MG; Start 11/22/16 at 09:00 Salmeterol Xinafoate/ Fluticasone (Advair 250/50 Diskus) 1 inh BID INH Last administered on 11/23/16 08:58; Admin Dose 1 INH; Start 11/21/16 at 21:00 Miscellaneous Information 1 ea NOTE XX ; Start 11/21/16 at 13:00 Glucose (Glutose) 15 gm Q15M PRN PO DECREASED GLUCOSE; Start 11/21/16 at 13:00 Glucose (Glutose) 22.5 gm Q15M PRN PO DECREASED GLUCOSE; Start 11/21/16 at 13:00 Dextrose (D50w Syringe) 25 ml Q15M PRN IV DECREASED GLUCOSE; Start 11/21/16 at 13:00 Dextrose (D50w Syringe) 50 ml Q15M PRN IV DECREASED GLUCOSE; Start 11/21/16 at 13:00 Glucagon (Glucagen) 1 mg Q15M PRN IM DECREASED GLUCOSE; Start 11/21/16 at 13:00 Glucose (Glutose) 15 gm Q15M PRN BUCCAL DECREASED GLUCOSE; Start 11/21/16 at 13: 00 Phenol (Cepastat Lozenge) 1 lozenge Q1H PRN MT THROAT PAIN Last administered on 11/23/16 05:03; Admin Dose 1 LOZENGE; Start 11/21/16 at 15:30 Aspirin (Ecotrin) 325 mg DAILY PO Last administered on 11/22/16 08:52; Admin Dose 325 MG; Start 11/21/16 at 18:00 LISA LYNN MD Nov 23, 2016 09:26
--- NOTE | 2016-11-23 09:28 | PN ---
Date/Time of Note Date/Time of Note DATE: 11/23/16 TIME: 09:26 Assessment/Plan VTE Prophylaxis VTE Prophylaxis Intervention: other Lines/Catheters IV Catheter Type (from Nrs): Saline Lock Urinary Cath still in place: Yes Reason Cath still needed: urinary retention Assessment/Plan Problems: (1) Paroxysmal atrial fibrillation Status: Chronic Comment: Stable and in sinus rhythm okay for discharge; resume retuning anticoagulant 2 weeks (2) Essential hypertension Status: Chronic Comment: Stable and well-controlled okay for discharge (3) Diabetes mellitus type 2 in obese Status: Chronic Comment: Stable (4) Aftercare following left knee joint replacement surgery Status: Acute Comment: Successful outcome discharge home with physical therapy Subjective 24 Hr Interval Summary Constitutional: no complaints Respiratory: no complaints Cardiovascular: no complaints Gastrointestinal: no complaints Exam/Review of Systems Vital Signs Vitals Vital Signs Date Time Temp Pulse Resp B/P Pulse Ox O2 Delivery O2 Flow Rate FiO2 11/23/16 08:15 98.2 64 16 138/62 100 Nasal Cannula 1.0 Intake and Output 11/22/16 11/22/16 11/23/16 15:00 23:00 07:00 Intake Total 810 ml 840 ml 500 ml Output Total 100 ml 1000 ml Balance 710 ml -160 ml 500 ml Exam Constitutional: alert, oriented Respiratory: clear to auscultation, normal air movement Cardiovascular: nl pulses, regular rate and rhythm Extremities: normal pulses, other (Wound without evidence of cellulitis infection or other compromise) Results Result Diagram: 11/23/16 0452 Results 24 hrs Laboratory Tests Test 11/23/16 04:52 Basophils # 0.0 Basophils % 0.3 Eosinophils # 0.1 Eosinophils % 1.1 Hematocrit 30.3 L Hemoglobin 10.5 L Lymphocytes # 2.0 Lymphocytes % 19.9 Mean Corpuscular Hemoglobin 33.8 H Mean Corpuscular Hemoglobin Concent 34.5 Mean Corpuscular Volume 98.0 Mean Platelet Volume 8.7 Monocytes # 0.5 Monocytes % 4.6 Neutrophils # 7.4 Neutrophils % 74.1 Nucleated Red Blood Cells # 0.0 Nucleated Red Blood Cells % 0.0 Platelet Count 259 Red Blood Count 3.10 L Red Cell Distribution Width 13.9 White Blood Count 10.0 Medications Medications Current Medications Dextrose/Lactated Ringer's (D5-Lr) 1,000 ml @ 80 mls/hr [id number] IV Last administered on 11/22/16 06:55; Admin Dose 80 MLS/HR; Start 11/21/16 at 12:30 Oxycodone HCl (Roxicodone) 20 mg Q3H PRN PO PAIN LEVEL 8-10; Start 11/21/16 at 15:30 Oxycodone HCl (Roxicodone) 10 mg Q3H PRN PO PAIN LEVEL 4-7 Last administered on 11/23/16 09:01; Admin Dose 10 MG; Start 11/21/16 at 15:30 Zolpidem Tartrate (Ambien) 5 mg HS PRN PO INSOMNIA Last administered on 21:04; Admin Dose 5 MG; Start 11/21/16 at 09:00 Miscellaneous Information (Note) NOTE XX ; Start 11/21/16 at 09:00 Aspirin (Ecotrin) 325 mg BID PO Last administered on 11/23/16 08:57; Admin Dose 325 MG; Start 11/22/16 at 09:00 Celecoxib (Celebrex) 200 mg BID PO Last administered on 11/23/16 08:56; Admin Dose 200 MG; Start 11/22/16 at 09:00 Dexamethasone (Decadron) 4 mg DAILY@07 IV Last administered on 11/23/16 05:36; Admin Dose 4 MG; Start 11/22/16 at 07:00; Stop 11/25/16 at 06:59 Pantoprazole (Protonix Tab) 40 mg DAILY@06 PO Last administered on 11/23/16 05: 36; Admin Dose 40 MG; Start 11/23/16 at 06:00 Docusate Sodium/ Ferrous Fumarate (Sera-Sequels) 1 tab BID PO Last administered on 11/23/16 08:56; Admin Dose 1 TAB; Start 11/22/16 at 09:00 Docusate Sodium (Colace) 200 mg BID PO Last administered on 11/23/16 08:56; Admin Dose 200 MG; Start 11/22/16 at 09:00; Stop 11/25/16 at 08:59 Simethicone (Mylicon) 80 mg TID PRN PO DISTENSION/GAS/BLOATING; Start 11/21/16 at 09:00 Senna/Docusate Sodium (Senokot-S) 2 tab BID PRN PO CONSTIPATION; Start 11/21/16 at 09:00 Magnesium Hydroxide (Milk Of Mag) 30 ml HS PRN PO CONSTIPATION; Start 11/21/16 at 09:00 Bisacodyl (Dulcolax Supp) 10 mg DAILY PRN GA CONSTIPATION; Start 11/21/16 at 09: 00 Sodium Biphosphate/ Sodium Phosphate (Fleet Enema) 133 ml DAILY PRN GA CONSTIPATION; Start 11/21/16 at 09:00 Diphenhydramine HCl (Benadryl) 25 mg Q4H PRN IM ITCHING OR RASH; Start 11/21/16 at 09:00 Ketorolac Tromethamine (Toradol) 30 mg DAILY@06 PRN INJ ADMINSTER BY SURGEON ONLY; Start 11/22/16 at 06:00; Stop 11/26/16 at 05:59 Bupivacaine HCl/ Epinephrine Bitart (Marcaine 0.25%/ Epi (Sdv) 30 ml) 20 ml DAILY@06 PRN INJ ADMINSTER BY SURGEON ONLY; Start 11/22/16 at 06:00; Stop at 05:59 Naloxone HCl (Narcan) 0.2 mg Q2M PRN IV DECREASED REPIRATORY RATE; Start at 09:00 Atenolol (Tenormin) 100 mg DAILY PO Last administered on 11/23/16 08:58; Admin Dose 100 MG; Start 11/22/16 at 09:00 Lisinopril (Zestril) 5 mg DAILY PO Last administered on 11/23/16 08:57; Admin Dose 5 MG; Start 11/22/16 at 09:00 Losartan Potassium (Cozaar) 50 mg DAILY PO Last administered on 11/23/16 08:57 ; Admin Dose 50 MG; Start 11/22/16 at 09:00 Pioglitazone HCl (Actos) 45 mg DAILY PO Last administered on 11/23/16 08:55; Admin Dose 45 MG; Start 11/22/16 at 09:00 Salmeterol Xinafoate/ Fluticasone (Advair 250/50 Diskus) 1 inh BID INH Last administered on 11/23/16 08:58; Admin Dose 1 INH; Start 11/21/16 at 21:00 Miscellaneous Information 1 ea NOTE XX ; Start 11/21/16 at 13:00 Glucose (Glutose) 15 gm Q15M PRN PO DECREASED GLUCOSE; Start 11/21/16 at 13:00 Glucose (Glutose) 22.5 gm Q15M PRN PO DECREASED GLUCOSE; Start 11/21/16 at 13:00 Dextrose (D50w Syringe) 25 ml Q15M PRN IV DECREASED GLUCOSE; Start 11/21/16 at 13:00 Dextrose (D50w Syringe) 50 ml Q15M PRN IV DECREASED GLUCOSE; Start 11/21/16 at 13:00 Glucagon (Glucagen) 1 mg Q15M PRN IM DECREASED GLUCOSE; Start 11/21/16 at 13:00 Glucose (Glutose) 15 gm Q15M PRN BUCCAL DECREASED GLUCOSE; Start 11/21/16 at 13: 00 Phenol (Cepastat Lozenge) 1 lozenge Q1H PRN MT THROAT PAIN Last administered on 11/23/16 05:03; Admin Dose 1 LOZENGE; Start 11/21/16 at 15:30 Aspirin (Ecotrin) 325 mg DAILY PO Last administered on 11/22/16 08:52; Admin Dose 325 MG; Start 11/21/16 at 18:00 LISA LYNN MD Nov 23, 2016 09:28
--- NOTE | 2016-11-24 11:57 | DS ---
DATE OF ADMISSION: 11/21/2016 DATE OF DISCHARGE: 11/23/2016 MAIN COMPLAINT: Pain in the left knee. PREOPERATIVE DIAGNOSIS: Severe degenerative joint disease of the left knee. POSTOPERATIVE DIAGNOSIS: Status post left total knee arthroplasty. DISCHARGE DIAGNOSIS: Status post left total knee arthroplasty. HOSPITAL COURSE: On the day of admission, the patient underwent left total knee arthroplasty. INTRAOPERATIVE COMPLICATIONS: None. POSTOPERATIVE COMPLICATIONS: None. The patient was given prophylactic antibiotics and anticoagulants in regards to aspirin while inpatient. The patient is on Eliquis, but was instructed by primary care physician to stop Eliquis while in hospital. The patient was out of bed on the day of surgery with assistance of a walker. On the first postoperative day suction drain was removed and the dressings were changed. The wound was clean, dry and intact and healing well. No signs of infection. The patient was out of bed on the first postoperative day with assistance using walker. On the day of discharge, wound remained clean, dry and intact. No signs of infection. Pain cocktail was given on each postoperative day without complication. Discharge temperature was 98.2 degrees. Discharge hemoglobin was 10.5. Discharge white blood cell count was 10. DISCHARGE CONDITION: Stable. The patient was discharged home. Arrangements were made for home health aide and home physical therapy. Patient was also given instructions to continue aspirin 325 mg b.i.d. for 1 week beginning on 11/21/2016. After 1 week of aspirin b.i.d. primary care physician has given her instructions to reinitiate her usual Eliquis dose. Postoperative pain medications were provided to the patient and patient is in possession. Medications were given on preoperative visit. The patient may continue her usual at home medications. The patient will be seen in office 3 weeks status post surgery. Tho will be removed by home health aide. If tho are not removed in 10 days when the patient is seen in the office they will be removed. Patient and patient's daughter were made aware that should there be any complications patient may follow up sooner in office for repeat evaluation. DISCHARGE MEDICATIONS: As per medication reconciliation form. DIET: Same as preadmission diet. Dictated By: KEVIN TUCKER for SUSHILA GOMEZ MD, KP/AKILA Conf#: [id number] DID#: [id number] [facility]
== END 2016-11-23 12:15 | disposition home health service (06) | DRG 470 ==
LOC: REC 06:03 → MS1 14:00
PROC: 0SRD0J9 Replacement of Left Knee Joint with Synthetic Substitute, Cemented, Open Approach (ICD-10-PCS; principal; 2016-11-21 08:00)
DX: M17.12 Unilateral primary osteoarthritis, left knee (principal); E11.9 Type 2 diabetes mellitus without complications; I48.0 Paroxysmal atrial fibrillation; I10 Essential (primary) hypertension; E78.5 Hyperlipidemia, unspecified; E66.9 Obesity, unspecified; Z68.32 Body mass index [BMI] 32.0-32.9, adult; Z96.651 Presence of right artificial knee joint; Z79.01 Long term (current) use of anticoagulants; Z79.84 Long term (current) use of oral hypoglycemic drugs
CPT/HCPCS: 73560; 73562; 82962; 85025; 86850; 86900; 86901; 86920; 87081; 88304; 88311; 94640; 97110; 97116; 97162; 97530; J1940; C1776; J0131; J0330; J0360; J0690; J0735; J1100; J1885; J2250; J2274; J2405; J2710; J2795; J3010; J3370; J7120; J7121

== ENCOUNTER → 2016-11-27 | Outpatient (CLI) | payer MEDICARE, MEDICAID ==
[~2016-11-27] MED LIST changes: -AMOX1TAB10 PO; -BACTDS PO; -LEVO750T8 PO; -METO10TA92 PO; -NICO-524 TRANSDERM; -PRED20 PO
--- NOTE | 2016-11-27 15:30 | HKNOTE ---
DATE OF SERVICE: 11/27/2016 SUBJECTIVE: A 71-year-old female (brought in by daughter who also translating today's visit, as she speaks Turkish) presents today for 6 days postop due to increased drainage and blistering forming around the left knee. She is status post left total knee replacement on 11/21/2016. The patient denies any calf pain, chest pain or shortness of breath. Patient does confirm pain local to the left knee that can travel up to a 6/10 on the pain scale with activity. The daughter states that patient is weightbearing; however, as she is able to walk around the house multiple times a day. Being followed up with close monitoring by home health nurse. The patient has developed ecchymosis over the left knee. No falls. She presents today due to concern of blister formation and bruising. OBJECTIVE: VITAL SIGNS: Blood pressure 124/57, temperature 98.7 degrees, pulse 57, respiratory rate is 12, height is 5 feet 2 inches, weight is 180. PHYSICAL EXAMINATION: GENERAL: She is alert, oriented, and in no acute distress. Patient is ambulating with assisted ambulation using front-wheeled walker. The patient is able to be seated comfortably with knee flexed to about 80 degrees. Upon removal of dressing, blistering seen to the proximal lateral portion of the tibia but not directly over the wound. Blistering is about 2 cm lateral to the surgical wound. There is also small blistering proximal to the wound. Tenderness to palpation blistering. Normal sensory examination to light touch. Mild to moderate ecchymosis over surgical wound. No discharge. [place] are clean, dry and intact. ASSESSMENT AND PLAN: 1. The patient's daughter states that she has been applying Tegaderm that was given to her on discharge and using it throughout the day and not just only when she showers. This is likely cause of blistering seen over wound. Blistering was drained today. Prior to draining of blisters Betadine was applied to maintain sterility. Dressing change performed today. Mepilex placed over the wound. 2. Wound care instructions discussed in detail with the patient and patient's daughter today. Continue close monitoring with home health. 3. Prescription for amoxicillin 500 mg 1 tab p.o. t.i.d. for 10 days given today for antibiotic prophylaxis #30 tablets. 4. The patient will follow up at scheduled 3 week postop appointment. 5. The patient and patient's daughter/caregiver was made aware, however, should there be any further complications she may follow up at an earlier time for repeat evaluation. 4. Continue Eliquis for DVT prophylaxis. 5. Continue pain medications as needed in regards to [place]. Celebrex twice a day. Also, continue gabapentin. Dictated By: KEVIN TUCKER for SUSHILA GOMEZ MD, KP/AKILA Conf#: [id number] DID#: [id number] [facility]
== END | disposition home or self-care (01) ==
LOC: HKI 13:13
DX: Z47.1 Aftercare following joint replacement surgery (principal); S80.222A Blister (nonthermal), left knee, initial encounter; X58.XXXA Exposure to other specified factors, initial encounter; Z96.652 Presence of left artificial knee joint

== ENCOUNTER → 2016-12-17 | Outpatient (CLI) | payer MEDICARE, MEDICAID ==
--- NOTE | 2016-12-17 16:27 | HKNOTE ---
DATE OF SERVICE: 12/17/2016 SUBJECTIVE: A 71-year-old female weeks postop left total knee replacement performed on 11/21/2016. The patient was last seen on 11/27/2016 with significant blistering surrounding the surgical wound. Blisters were drained. Dressing change performed and patient was provided with amoxicillin 500 mg 10- day supply. The patient has finished antibiotics. She continues with pain, generalized throughout the knee that she rates at an 8/10 all day. Pain with flexion and extension. She has initiated physical therapy and has improved in regard to extension but has continued difficulty with flexion. Denies any falls. The patient is able to ambulate with the assistance using front-wheeled walker. Denies any calf pain, chest pain or shortness of breath. Patient presents today with her daughter who is translating today's visit, as she is Pashto-speaking. OBJECTIVE: VITAL SIGNS: Blood pressure is 131/58, temperature is 98.3, pulse is 67, respiratory rate is 12, height is 5 feet 2 inches, weight is 180 pounds. GENERAL: Significant scabbing along the surgical wound and just lateral to the surgical wound. No drainage or discharge. Ecchymosis surrounding the surgical wound. Appearance does not look like that of infection. Blistering surrounding the wound has significantly improved. Exquisite pain with flexion, extension, about 10 degrees lag from full extension, and the patient is able to flex up to 90 degrees. Tenderness to palpation. Negative Homans sign/no calf pain. ASSESSMENT AND PLAN: 1. Concern regarding wound expressed today. Advised close monitoring. 2. The patient will follow up in 1 week for continued wound care. Mepilex dressing applied today. 3. [place] 10/325 mg #45 tablets provided today which can be taken on an as needed basis regarding severe pain. Followup 1 week for continued monitoring around wound site. The patient was also seen with Dr. Gomez, who agrees with the plan. Dictated By: KEVIN TUCKER for SUSHILA GOMEZ MD, KP/AKILA Conf#: [id number] DID#: [id number] [facility]
== END | disposition home or self-care (01) ==
LOC: HKI 09:20
DX: Z47.1 Aftercare following joint replacement surgery (principal); Z96.652 Presence of left artificial knee joint

== ENCOUNTER → 2016-12-23 | Outpatient (CLI) | payer MEDICARE, MEDICAID ==
--- NOTE | 2016-12-23 15:52 | PN ---
Date/Time of Note Date/Time of Note DATE: 12/23/16 TIME: 15:43 Outpatient Progress Note Chief Complaint Continued pain status post left total knee replacement with possible superficial infection. HPI 71-year-old female status post left total knee replacement on 11/21/2016 presents today for one-week follow-up for ongoing monitoring of wound. Patient continues with pain of moderate to severe level that patient states is constant. Blistering surrounding wound continues to improve the patient states that she continues with small discharge to the proximal wound site. Denies any falls. Continues ambulating with assistance using front wheeled walker. Denies any changes since she was seen last week. Denies any calf pain or shortness of breath. Review of Systems Const: No Fever, no chills, no Wt. loss, no Fatigue, normal appetite, no diaphoresis. Physical Exam Blood pressure is 131/82, temperature is 98.5, pulse 56, respiratory rate 12, height 5 feet 2 inches, weight 180 pounds General Appearance: well-developed, well-nourished, in no acute distress Left knee: No significant changes in presentation of wound over the anterior left knee. Small discharge to the proximal region of wound. Blistering continues to improve. Improved erythema surrounding wound. Patient is able to flex the knee up to 110 today. Full extension. Assisted ambulation with front wheeled walker. Tenderness to palpation of the left knee. Allergies Coded Allergies: No Known Allergy (Verified , 11/21/16) Assessment/Plan * Dress change provided today * Repeat antibiotic prescription of Keflex 500 mg 1 tablet p.o. 4 times daily 10 days #40 tablets provided today * Continue with pain medications as needed * Follow-up 1 week for repeat wound check. Swab of wound taken today and sent to lab for culture. Dr. De Leon was present at today's visit and agrees with plan. Medications Home Meds Active Scripts Salmeterol Xinaf/Fluticasone* (Advair*) 250-50 Diskus Inhaler, 1 INH INHALATION BID, #1 INHALER 3 Refills Prov:SHANNON CANNON 05/01/16 Albuterol/Ipratropium* (Combivent Respimat*) 20-100 Mcg/Inh - 4 Gm Aer.w.adap, 1 PUFF INHALATION QID, #1 INHALER 3 Refills Prov:SHANNON CANNON 05/01/16 Reported Medications Pioglitazone Hcl* (Pioglitazone Hcl*) 45 Mg Tablet, 45 MG PO DAILY, TAB 04/29/16 Lisinopril* (Lisinopril*) 5 Mg Tablet, 5 MG PO DAILY, #30 TAB 04/29/16 Losartan Potassium* (Losartan Potassium*) 25 Mg Tablet, 50 MG PO DAILY, TAB 04/29/16 Atenolol* (Atenolol*) 100 Mg Tablet, 100 MG PO DAILY, #30 TAB 04/29/16 Esomeprazole Mag Trihydrate (Nexium) 40 Mg Capsule.dr, 40 MG PO AC BREAKFAST, # 30 CAP 04/29/16 Metformin* (Glucophage*) 1,000 Mg Tablet, 1000 MG PO BID, #60 TAB 04/29/16 Apixaban* (Eliquis*) 2.5 Mg Tablet, 5 MG PO BID, TAB 04/29/16 Pravastatin Sodium* (Pravastatin Sodium*) 40 Mg Tablet, 40 MG PO HS, TAB 04/29/16 Fenofibric Acid (Choline) (Fenofibric Acid) 135 Mg Capsule., 135 MG PO DAILY, TAB 04/29/16 KEVIN FLORES PA-C Dec 23, 2016 15:52
== END | disposition home or self-care (01) ==
LOC: HKI 14:45
DX: Z47.1 Aftercare following joint replacement surgery (principal); Z96.652 Presence of left artificial knee joint

== ENCOUNTER → 2016-12-30 | Outpatient (CLI) | payer MEDICARE, MEDICAID ==
--- NOTE | 2016-12-30 17:06 | PN ---
Date/Time of Note Date/Time of Note DATE: 12/30/16 TIME: 17:02 Outpatient Progress Note Chief Complaint One-week follow-up for wound check. HPI 71-year-old female status post left total knee replacement on 11/21/2016 presents today for one-week follow-up regarding superficial wound infection. Infection continues to improve. Patient currently taking Keflex 500 mg 4 times daily. Denies any complications and she was seen last week. Pain has decreased. No falls. Review of Systems Const: No Fever, no chills, no Fatigue, normal appetite, no diaphoresis. Resp: No SOB, no wheezing, no chest pain. CV: No chest pain, no palpitaions, no STYLES. Physical Exam General Appearance: well-developed, well-nourished, in no acute distress. Left knee: Wound continues to improve. Significantly improved erythema. Small region of discharge. Range of motion is 0-100. No pain with range of motion. No tenderness to palpation. Blistering is healed. Assisted ambulation using front wheeled walker. Allergies Coded Allergies: No Known Allergy (Verified , 11/21/16) Assessment/Plan * Continue with Keflex 500 mg until she has completed antibiotic regimen. * Dress change performed today. * Wound culture has returned showing growth of normal skin keesha. No underlying bacteria. Negative culture. Gram stain shows positive cocci in clusters. No white blood cells seen. No anaerobes isolated. * Follow-up 1 week for wound check. Dr. De Leon was present and agrees with plan. Medications Home Meds Active Scripts Salmeterol Xinaf/Fluticasone* (Advair*) 250-50 Diskus Inhaler, 1 INH INHALATION BID, #1 INHALER 3 Refills Prov:SHANNON CANNON F 05/01/16 Albuterol/Ipratropium* (Combivent Respimat*) 20-100 Mcg/Inh - 4 Gm Aer.w.adap, 1 PUFF INHALATION QID, #1 INHALER 3 Refills Prov:SHANNON CANNON F 05/01/16 Reported Medications Pioglitazone Hcl* (Pioglitazone Hcl*) 45 Mg Tablet, 45 MG PO DAILY, TAB 04/29/16 Lisinopril* (Lisinopril*) 5 Mg Tablet, 5 MG PO DAILY, #30 TAB 7/12/16 Losartan Potassium* (Losartan Potassium*) 25 Mg Tablet, 50 MG PO DAILY, TAB 04/29/16 Atenolol* (Atenolol*) 100 Mg Tablet, 100 MG PO DAILY, #30 TAB 04/29/16 Esomeprazole Mag Trihydrate (Nexium) 40 Mg Capsule.dr, 40 MG PO AC BREAKFAST, # 30 CAP 04/29/16 Metformin* (Glucophage*) 1,000 Mg Tablet, 1000 MG PO BID, #60 TAB 04/29/16 Apixaban* (Eliquis*) 2.5 Mg Tablet, 5 MG PO BID, TAB 04/29/16 Pravastatin Sodium* (Pravastatin Sodium*) 40 Mg Tablet, 40 MG PO HS, TAB 04/29/16 Fenofibric Acid (Choline) (Fenofibric Acid) 135 Mg Capsule., 135 MG PO DAILY, TAB 04/29/16 KEVIN FLORES PA-C Dec 30, 2016 17:06
== END | disposition home or self-care (01) ==
LOC: HKI 15:04
DX: Z47.1 Aftercare following joint replacement surgery (principal); T81.4XXA Infection following a procedure, initial encounter; Z96.652 Presence of left artificial knee joint

== ENCOUNTER → 2017-01-13 | Outpatient (CLI) | payer MEDICARE, MEDICAID ==
--- NOTE | 2017-01-13 17:25 | PN ---
Date/Time of Note Date/Time of Note DATE: 01/13/17 TIME: 17:16 Outpatient Progress Note Chief Complaint 6 week postop left total knee replacement. HPI 71-year-old female presents today for 6 week postop appointment for left total knee arthroplasty. Since patient was last seen she states that she continues with pain. She states that her pain is improved and is typically around an 8/ 10 on the pain scale. There is some confusion as on last exam, patient states that she had mild pain complaints. Patient is with her daughter today who is also translating today's visit. In regards to the knee she continues using single-point cane for assisted ambulation as she states that she is unable to walk without cane. Denies any falls. Has not started outpatient physical therapy at this time. Wound continues to heal status post superficial skin infection. Has completed antibiotic regimen of Keflex. Denies any calf pain with ambulation, shortness of breath or chest pain/tightness. Review of Systems Const: No Fever, no chills, no Fatigue, normal appetite, no diaphoresis. Resp: No SOB, no wheezing, no chest pain. CV: No chest pain, no palpitaions, no STYLES. Physical Exam General Appearance: well-developed, well-nourished, in no acute distress. Left knee: Wound continues to improve. Scabbing to the proximal knee. No increased erythema. Decreased swelling from previous examination. Patient is able to fully extend the knee and flex up to 110. Tenderness to palpation that is generalized to the knee. Calf pain on palpation. No pain with ambulation. Patient uses a single-point cane for assisted ambulation. When patient is asked to walk independently without cane but with guidance by myself , she is able to walk independently with no change in posture. Normal sensory examination to light touch. Imaging: X-ray of the left knee performed on 01/13/2017 showing all components appearing well aligned, attached and integrated to the bone. No signs of any lucency between metal and bone. Allergies Coded Allergies: No Known Allergy (Verified , 11/21/16) Assessment/Plan -Patient progressing well -Surgical wound continues to heal well. We are concerned regarding patient noncompliance though. Patient had scabbing that was intact to the proximal surgical wound but when I left the room and returned a couple minutes later, patient has picked scabbing and there is no eschar present. Lengthy discussion regarding proper wound healing had with patient. -Smoking cessation discussed as well as patient is a long time chronic smoker. -No signs of infection or DVT on exam. With palpation to the Patient has mild pain complaints. Lengthy discussion regarding signs and symptoms had with patient and patient's daughter. Should patient develop any worsening complaints or new complaints, advised to call the office immediately for stat Doppler ultrasound for rule out of DVT. Very low suspicion of any DVT at this time. -X-rays showing no abnormalities in regards to prosthesis attachment to bone. -Range of motion is improved status post total knee replacement. Outpatient physical therapy prescription provided today. -Antibiotic prophylaxis card provided today. -Follow-up 10 days. -There is some difficulty and confusion regarding true accuracy of pain complaints as patient's daughter pulls me aside today and states that she does not feel that patient is giving accurate account of history to the knee status post surgery. Patient's daughter states that patient does have issues in regards to memory. Patient did have tenderness to palpation to the knee while performing physical examination. When Steri-Strips were applied to the area where patient removed the eschar, palpation to the knee was performed as well as palpation to the calf and patient had no reaction of pain or discomfort. This was also discussed with patient's daughter today. Daughter states that she feels that patient continues having mild pain complaints and not the 8/10 pain the patient states that she has been having. We will keep a close eye on gauging true pain severity as there seems to be discrepancy in regards to patient history compared to actual findings. X-rays performed today show that prosthesis is intact and healing well. Dental prophylaxis discussed in detail today. Patient given prophylaxis card with antibiotic options. Should patient have allergy to specific medication ( eg penicillin) alternative options are also provided on the card. Patient is aware that antibiotics should be taken prior to any procedures to prevent increased risk of infection to the joint. Patient is aware that this will be for the rest of their life. Patient states understanding and compliance. Dr. De Leon was present during exam and agrees with plan. Medications Home Meds Active Scripts Salmeterol Xinaf/Fluticasone* (Advair*) 250-50 Diskus Inhaler, 1 INH INHALATION BID, #1 INHALER 3 Refills Prov:SHANNON CANNON 7/14/16 Albuterol/Ipratropium* (Combivent Respimat*) 20-100 Mcg/Inh - 4 Gm Aer.w.adap, 1 PUFF INHALATION QID, #1 INHALER 3 Refills Prov:SHANNON CANNON 05/01/16 Reported Medications Pioglitazone Hcl* (Pioglitazone Hcl*) 45 Mg Tablet, 45 MG PO DAILY, TAB 04/29/16 Lisinopril* (Lisinopril*) 5 Mg Tablet, 5 MG PO DAILY, #30 TAB 04/29/16 Losartan Potassium* (Losartan Potassium*) 25 Mg Tablet, 50 MG PO DAILY, TAB 04/29/16 Atenolol* (Atenolol*) 100 Mg Tablet, 100 MG PO DAILY, #30 TAB 04/29/16 Esomeprazole Mag Trihydrate (Nexium) 40 Mg Capsule.dr, 40 MG PO AC BREAKFAST, # 30 CAP 04/29/16 Metformin* (Glucophage*) 1,000 Mg Tablet, 1000 MG PO BID, #60 TAB 04/29/16 Apixaban* (Eliquis*) 2.5 Mg Tablet, 5 MG PO BID, TAB 04/29/16 Pravastatin Sodium* (Pravastatin Sodium*) 40 Mg Tablet, 40 MG PO HS, TAB 04/29/16 Fenofibric Acid (Choline) (Fenofibric Acid) 135 Mg Capsule., 135 MG PO DAILY, TAB 04/29/16 KEVIN FLORES PA-C Jan 13, 2017 17:25
--- NOTE | 2017-01-13 17:31 | RADRPT ---
PROCEDURE: XR left knee. CLINICAL INDICATION: Knee pain. TECHNIQUE: AP weightbearing, lateral weightbearing and sunrise views are available for review. COMPARISON: 11/21/2016 FINDINGS: There is a constrained total knee replacement. There is no evidence of loosening of the prosthesis. There is no evidence of hardware failure. The osseous structures are normal in mineralization, archi tecture and alignment No acute fracture or dislocation is seen.No osseous lesions are identified. T he soft tissues are unremarkable . IMPRESSION: Unremarkable constrained total knee replacement. RPTAT: [facility] .Tristin Craft MD, Date Time Electronically viewed and signed by .Tristin Craft MD, on 01/13/2017 17:31 .B/
== END | disposition home or self-care (01) ==
LOC: HKI 15:18
DX: Z47.1 Aftercare following joint replacement surgery (principal); Z96.652 Presence of left artificial knee joint

== ENCOUNTER 2018-01-26 17:18 | Observation (INO) | END 2018-01-28 18:45 | disposition home or self-care (01) ==